=== PATIENT | female | born 1970 | race Two or more races ===

== ENCOUNTER → 2020-04-22 15:54 | Outpatient (BNVA) | payer OTHER, SELFPAY | PROVIDERS: PCP Pediatrics; Referring Provider Pediatrics; Visit Provider Urology | DX: Z76.89 Persons encountering health services in other specified circumstances (principal) ==

== ENCOUNTER 2020-06-17 08:26 | Outpatient (REF) | payer OTHER, SELFPAY ==
--- NOTE | 2020-06-17 | CT_ITS ---
EXAMINATION: CT SOFT TISSUE NECK WITH CONTRAST CLINICAL INFORMATION: Right neck mass, dysphagia. COMPARISON: None TECHNIQUE: Following the intravenous administration of 60 mL of Omnipaque 350 intravenous contrast, helical imaging was performed in the axial plane with generation of coronal and sagittal reformatted images. This CT examination was performed using dose optimization techniques as appropriate, variously including the following: *Automated exposure control *Adjustment of mA and/or kV according to patient size (this includes techniques or standardized protocols for targeted exams where dose is matched to indication/reason for exam; i.e. extremities or head) *Use of iterative reconstruction technique DLP: 312 mGy-cm FINDINGS: There are mild shotty bilateral lymph nodes the largest lymph node level IV below the mandible angle measures 0.7 cm in short axis. A similar lymph node is seen in the left neck as well. Smaller shotty lymph nodes are seen in the submandibular space. The parotid glands are homogeneous in attenuation. The submandibular glands are normal. The oral cavity is limited in evaluation secondary to dental amalgam artifact. The laryngeal structures are normal. The parapharyngeal fat is preserved. The carotid sheath vasculature opacify normally. No extramucosal soft tissue mass or fluid collection is seen. No retropharyngeal fluid collection is seen. There is a hypodensity in the right thyroid lobe likely a nodule. The left gland is normal. The superior mediastinum is unremarkable. The lung apices are clear. The mastoid air cells are well aerated. There is a small polyp or retention cyst right maxillary sinus. The rest of the paranasal sinuses and mastoid air cells are well aerated. The temporomandibular joints are normal. No periapical disease is identified. No osseous abnormalities are seen. The imaged portions of the brain parenchyma are unremarkable. There are degenerative disc changes C4-C5 disc level with mild ventral spondylosis. CT/CT soft tissue neck w con IMPRESSION: No soft tissue mass seen in the neck. Benign-appearing lymph nodes seen in the neck. The oral cavity is limited in evaluation secondary to dental amalgam-related artifacts.
== END 2020-06-17 08:27 | disposition home or self-care (01) ==
LOC: HO.CT 08:26
PROVIDERS: PCP Pediatrics; Visit Provider Otolaryngology
DX: R22.1 Localized swelling, mass and lump, neck (principal)
CPT/HCPCS: 70491

== ENCOUNTER → 2021-03-15 15:37 | Outpatient (BNVA) | payer OTHER, SELFPAY | DX: Z13.9 Encounter for screening, unspecified (principal); N20.0 Calculus of kidney | CPT/HCPCS: 99212 ==

== ENCOUNTER → 2021-08-04 09:47 | Outpatient (BNVA) | payer OTHER, SELFPAY | PROVIDERS: PCP Pediatrics ==

== ENCOUNTER 2022-02-13 16:34 | Outpatient (REF) | payer OTHER, SELFPAY ==
--- NOTE | ~2022-02-13 | US_ITS ---
EXAMINATION: US RETROPERITONEAL LIMITED (RENAL ONLY) CLINICAL INFORMATION: Cyst of kidney, acquired. COMPARISON: Renal ultrasound 05/18/2021 and 04/15/2020. TECHNIQUE: Real-time imaging of the kidneys. FINDINGS: RIGHT KIDNEY: 10.4 x 4.8 x 5.1 cm (SAG x AP x TRV). The kidney is normal in size, contour, and echogenicity. There is mild cortical thinning or scarring in the midpole that appears unchanged. Renal cortical thickness is otherwise normal. No calculi or focal parenchymal lesions. No hydronephrosis. LEFT KIDNEY: 11.2 x 5.7 x 4.1 cm (SAG x AP x TRV). The kidney is normal in size, contour, and echogenicity. Renal cortical thickness is normal. There is 1.7 x 1.5 x 1.6 cm cyst in the upper pole. This measured 1.6 x 1.5 x 1.3 cm on most recent exam May 2021 and is minimally increased in size. No renal calculi or hydronephrosis. US/US renal BI IMPRESSION: Small simple left renal cyst.
== END 2022-02-13 16:35 | disposition home or self-care (01) ==
LOC: HO.US 16:34
DX: N28.1 Cyst of kidney, acquired (principal); N20.0 Calculus of kidney
CPT/HCPCS: 76775

== ENCOUNTER 2023-02-01 13:09 | Outpatient (REF) | payer OTHER, SELFPAY ==
--- NOTE | ~2023-02-01 | US_ITS ---
EXAMINATION: US RETROPERITONEAL LIMITED (RENAL ONLY) CLINICAL INFORMATION: Cyst of kidney, acquired. COMPARISON: Renal ultrasound 02/13/2022 and 05/18/2021. TECHNIQUE: Real-time imaging of the kidneys. FINDINGS: RIGHT KIDNEY: 10.9 x 5.0 x 5.6 cm (SAG x AP x TRV). The kidney is normal in size, contour, and echogenicity. Renal cortical thickness is normal. No calculi or focal parenchymal lesions. No hydronephrosis. LEFT KIDNEY: 11.5 x 4.6 x 5.7 cm (SAG x AP x TRV). The kidney is normal in size, contour, and echogenicity. Renal cortical thickness is normal. No renal calculi or hydronephrosis. At the upper pole, a 1.8 cm benign, simple cyst is seen, for which no imaging follow-up is recommended. US/US renal BI IMPRESSION: Unremarkable examination.
== END 2023-02-01 13:10 | disposition home or self-care (01) ==
LOC: HO.US 13:09
PROVIDERS: Visit Provider Nurse Practitioner Family
DX: N20.0 Calculus of kidney (principal); N28.1 Cyst of kidney, acquired
CPT/HCPCS: 76775

== ENCOUNTER 2023-02-15 13:30 | Outpatient (AMB) | payer OTHER, SELFPAY ==
--- NOTE | 2023-02-15 13:32 | A.OFFVIS_ITS ---
Intake Intake Visit Reasons: 1 year nephrolithiasis follow up w/renal US (set) Intake Note: Patient is present for follow up nephrolithiasis Urology Medications: none Blood Thinner: None Mask Inspector Required: No Accompanied by: Self / Same As Patient Allergies metronidazole Allergy (Unknown, Verified 02/15/23 14:03) rash Medication List - Last Reconciled 02/15/23 by PAM Pandey pantoprazole 40 mg PO BID venlafaxine ER 75 mg PO DAILY HPI HPI Comments History of Present Illness Details Jena is a very pleasant 52-year-old [employer] female patient of Dr. Melendez. She presents to the office today for follow-up of her nephrolithiasis and renal cyst. In discussion with the patient today she reports to be doing and feeling well. Recent renal imaging results reviewed with the patient today. Bilateral kidneys with no calculi, lesions, and or hydronephrosis noted. At the upper pole a 1.8 cm benign left simple cyst is seen. For which no imaging follow-up is recommended per radiology report. When asked patient reports to be drinking plenty of water daily. She denies any urinary issues or concerns at this time. When asked she reports to be happy with current voiding parameters. She denies urinary urgency, urinary frequency, incontinence, nocturia, hematuria, dysuria, foul smelling urine, changes to urinary stream, flank pain, fever, and or chills. In office urinalysis results reviewed with the patient today. Discussed at length potential causes for microscopic hematuria. Patient denies any previous chemical exposure or smoking history. Discussed further microscopic hematuria workup versus surveillance monitoring. Patient Patient otherwise offers no other issues or concerns at this time. [facility] Medical History Renal cyst Review of Systems Const All systems reviewed & are unremarkable except as noted in HPI and below Eyes Reports no additional complaints ENT Reports no additional complaints Card Reports no additional complaints Resp Reports no additional complaints GI Reports no additional complaints Reports as per HPI Musc Reports no additional complaints Neuro Reports no additional complaints Psych Reports no additional complaints Endo Reports no additional complaints Jackson/Lymph Reports no additional complaints Aller/Immun Reports no additional complaints Physical Exam Const General: cooperative, healthy appearing, comfortable, no acute distress, well developed, alert and awake Orientation/consciousness: patient oriented x3 Limitations: no limitations HEENT Head: Yes normal to inspection, Yes normocephalic and Yes atraumatic Ears: hearing grossly normal bilaterally Eyes General: appearance normal, both eyes and all related structures Neck Neck: Yes normal visual inspection and Yes trachea midline Chest Chest palpation & inspection: normal inspection of the chest Resp Effort & Inspection: normal respiratory effort and able to speak in complete sentences Cardio Rate: regular rate GI Inspection: Yes normal to inspection General: Yes no CVA tenderness Back/Spine/Pelvis Back: no CVA tenderness Skin General skin exam: no rashes or lesions noted Neuro General: patient oriented x3 Extrem General: Yes normal to inspection Psych Appearance: grossly normal and well kempt Mental Status: mental status grossly normal Speech and movement: Normal speech and movement present and Clear speech present Affect: normal affect Attitude: cooperative Thought process: Normal thought process present Thought content: Normal thought content present Insight: Good insight present (Psych) Judgement: Good judgement present (Psych) Results AMB Urinalysis, Automated UA Leukoctes 0 Akiko/uL Last Edit by [employer] [facility] [facility] on 02/15/23 13:52 UA Nitrite Last Edit by [employer] on 02/15/23 13:52 UA Urobilinogen 0.2 mg/dL Last Edit by [employer] on 02/15/23 13:52 UA Protein 0 mg/dL Last Edit by [employer] on 02/15/23 13:52 UA pH 5.5 Last Edit by [employer] [facility] on 02/15/23 13:52 UA Blood 200 Josh/uL Last Edit by [employer] on 02/15/23 13:52 UA Specific [place] 1.025 Last Edit by [employer] on 02/15/23 13:52 UA Ketone Negative Last Edit by [employer] on 02/15/23 13:52 UA Bilirubin 1 mg/dL Last Edit by [employer] on 02/15/23 13:52 UA Glucose 0 mg/dL Last Edit by [employer] on 02/15/23 13:52 Results Reviewed Results Reviewed: Laboratory Last Values Urine pH (Auto) 5.5 02/15/23 13:41 Specific [place] (Auto) 1.025 02/15/23 13:41 Urine Protein (Auto) 0 mg/dL 02/15/23 13:41 Glucose (UA)(Auto) 0 mg/dL 02/15/23 13:41 Urine Ketones (Auto) Negative 02/15/23 13:41 Urine Blood (Auto) 200 Josh/uL 02/15/23 13:41 Urine Bilirubin (Auto) 1 mg/dL 02/15/23 13:41 Urine Urobilinogen (Auto) 0.2 mg/dL 02/15/23 13:41 Leukocyte Esterase (Auto) 0 Akiko/uL 02/15/23 13:41 Date of Service: 02/01/23 EXAMINATION: US RETROPERITONEAL LIMITED (RENAL ONLY) CLINICAL INFORMATION: Cyst of kidney, acquired. COMPARISON: Renal ultrasound 02/13/2022 and 05/18/2021. TECHNIQUE: Real-time imaging of the kidneys. FINDINGS: RIGHT KIDNEY: 10.9 x 5.0 x 5.6 cm (SAG x AP x TRV). The kidney is normal in size, contour, and echogenicity. Renal cortical thickness is normal. No calculi or focal parenchymal lesions. No hydronephrosis. LEFT KIDNEY: 11.5 x 4.6 x 5.7 cm (SAG x AP x TRV). The kidney is normal in size, contour, and echogenicity. Renal cortical thickness is normal. No renal calculi or hydronephrosis. At the upper pole, a 1.8 cm benign, simple cyst is seen, for which no imaging follow-up is recommended. IMPRESSION: Unremarkable examination. Assessment & Plan Assessment & Plan (1) Renal cyst: Code(s): N28.1 - Cyst of kidney, acquired (2) Nephrolithiasis: Code(s): N20.0 - Calculus of kidney (3) Microscopic hematuria: Code(s): R31.29 - Other microscopic hematuria Plan In office urinalysis results reviewed with the patient today; as noted above; will send for urine cytology Recent renal imaging results reviewed with the patient today; as noted above. Educated, encouraged, and stressed the importance of drinking plenty of water daily. Discussed adding 1 oz of lemon juice to water daily. Patient denies any urological issues or concerns at this time. Discussed further microscopic hematuria workup to include cytology and in office cystoscopy with imaging. Will continue with surveillance monitoring Renal ultrasound in 1 year. Follow-up in 1 year with imaging to be completed prior; or sooner with any issues, concerns, and or questions. Orders: Orders AMB Urinalysis Automated Today Z13.9 - Encounter for screening, unspecified Urine Cytology Today R31.29 - Other microscopic hematuria Patient Instructions: The patient had an opportunity to ask questions regarding the treatment plan. All questions were answered. Physical exam, labs, and imaging were discussed and reviewed in detail. As well as risks, benefits, and discussion of treatment choices. No major barriers to understanding were identified. The patient expressed understanding and agreement with the above treatment plan. The patient was made aware they should contact our office by phone for worsening of their current condition, the appearance of new symptoms, or with any qu estions or concerns. Compliance is encouraged with any medications and follow up testing that is ordered. It is a privilege to be allowed the opportunity to participate in? your urological care.? Again, if you have any questions or concerns If you have any questions or concerns please do not hesitate to contact me. The office is [phone]. This note is constructed using voice recognition software. While every effort has been made to ensure accuracy desk reporter errors may have been included. Yours sincerely, PAM Pandey Coding Level of Care Code Est Pt Level 3 (40093) Diagnoses Renal cyst N28.1 Nephrolithiasis N20.0 Microscopic hematuria R31.29
== END 2023-02-15 14:06 | disposition home or self-care (01) ==
PROVIDERS: PCP Pediatrics; Visit Provider Nurse Practitioner Family
DX: N28.1 Cyst of kidney, acquired (principal); N20.0 Calculus of kidney; R31.29 Other microscopic hematuria; Z13.9 Encounter for screening, unspecified
CPT/HCPCS: 99213

== ENCOUNTER 2023-02-15 13:30 | Outpatient (REF) | payer OTHER, SELFPAY ==
[2023-02-15 16:18] LABS: Urine Cytology See Pathology rpt
== END 2023-02-15 13:31 | disposition home or self-care (01) ==
LOC: HO.LNP 13:30
PROVIDERS: Visit Provider Nurse Practitioner Family
DX: R31.29 Other microscopic hematuria (principal); N28.1 Cyst of kidney, acquired; Z79.899 Other long term (current) drug therapy
CPT/HCPCS: 81003; 88112

== ENCOUNTER 2024-02-21 12:44 | Outpatient (REF) | payer OTHER, SELFPAY ==
--- NOTE | ~2024-02-21 | US_ITS ---
EXAMINATION: US RETROPERITONEAL LIMITED (RENAL ONLY) CLINICAL INFORMATION: Cyst of kidney, acquired. COMPARISON: Renal ultrasound 02/01/2023 and 02/13/2022. TECHNIQUE: Real-time imaging of the kidneys. FINDINGS: RIGHT KIDNEY: 11.1 x 4.5 x 4.7 cm (SAG x AP x TRV). Minimal right renal parenchymal cortical scarring. Renal cortical thickness is otherwise normal. No calculi or focal parenchymal lesions. No hydronephrosis. LEFT KIDNEY: 11.6 x 5.4 x 4.0 cm (SAG x AP x TRV). The kidney is normal in size, contour, and echogenicity. Renal cortical thickness is normal. No renal calculi or hydronephrosis. Benign-appearing renal cyst measuring 1.8 cm. No follow up imaging is recommended. Partially imaged liver appears echogenic suggestive of hepatic steatosis or underlying liver disease. This could be further characterized with a dedicated right upper quadrant ultrasound if clinically indicated. US/US renal BI IMPRESSION: * Benign-appearing 1.8 cm left renal cyst. No follow up imaging is recommended. * Partially imaged liver appears echogenic suggestive of hepatic steatosis or underlying liver disease. This could be further characterized with a dedicated right upper quadrant ultrasound if clinically indicated. Electronically signed by: Wen Mcdonald MD 03/02/2024 07:28 PM EDT
== END 2024-02-21 12:45 | disposition home or self-care (01) ==
LOC: HO.US 12:44
PROVIDERS: PCP Pediatrics; Visit Provider Nurse Practitioner Family
DX: N20.0 Calculus of kidney (principal); N28.1 Cyst of kidney, acquired
CPT/HCPCS: 76775

== ENCOUNTER 2024-03-04 07:57 | Outpatient (REF) | payer OTHER, SELFPAY ==
[2024-03-04 17:52] LABS: Urine Cytology See Pathology rpt
== END 2024-03-04 07:58 | disposition home or self-care (01) ==
LOC: HO.LNP 07:57
PROVIDERS: PCP Pediatrics; Visit Provider Nurse Practitioner Family
DX: R31.29 Other microscopic hematuria (principal)
CPT/HCPCS: 81003; 88112

== ENCOUNTER 2024-03-04 07:57 | Outpatient (AMB) | payer OTHER, SELFPAY ==
--- NOTE | 2024-03-04 07:58 | A.OFFVIS_ITS ---
Intake Visit Reasons: 1y/US(set) Intake Note: Patient presents today for follow up on: Nephrolithiasis and Ultrasound Results Imaging Completed: 02/21/24 Urology Medications: none Blood Thinner: None Optimization Consultant Required: No Accompanied by: Self / Same As Patient Allergies metronidazole Allergy (Unknown, Verified 03/04/24 08:16) rash Medication List - Last Reconciled 03/04/24 by PAM Pandey pantoprazole 40 mg PO BID venlafaxine ER 150 mg PO DAILY HPI Comments Details: Jena is a very pleasant 53-year-old female patient of Dr. Melendez. She presents to the office today for follow-up of her nephrolithiasis and renal cyst. In discussion with the patient today she reports to be doing and feeling well. Recent renal imaging results reviewed with the patient today. Bilateral kidneys with no calculi, lesions, and or hydronephrosis noted. At the upper pole a 1.8 cm benign left simple cyst is seen. For which no imaging follow-up is recommended per radiology report. When asked patient reports to be drinking plenty of water daily. She denies any urinary issues or concerns at this time. When asked she reports to be happy with current voiding parameters. She denies urinary urgency, urinary frequency, incontinence, nocturia, hematuria, dysuria, foul smelling urine, changes to urinary stream, flank pain, fever, and or chills. In office urinalysis results reviewed with the patient today. Discussed at length potential causes for microscopic hematuria. Patient denies any previous chemical exposure or smoking history. Discussed further microscopic hematuria workup versus surveillance monitoring. She discusses recently meeting with mushroom packer as she is trying to eat healthier and lose weight naturally. Patient otherwise offers no other issues or concerns at this time. 03/02 urine cytology: Negative for high-grade urothelial carcinoma [facility] Medical History Renal cyst Review of Systems Const All systems reviewed & are unremarkable except as noted in HPI and below Eyes Reports no additional complaints ENT Reports no additional complaints Card Reports no additional complaints Resp Reports no additional complaints GI Reports no additional complaints Reports as per HPI Musc Reports no additional complaints Neuro Reports no additional complaints Psych Reports no additional complaints Endo Reports no additional complaints Jackson/Lymph Reports no additional complaints Aller/Immun Reports no additional complaints Physical Exam Const General: cooperative, healthy appearing, comfortable, no acute distress, well developed, alert and awake Orientation/consciousness: patient oriented x3 Limitations: no limitations HEENT Head: Yes normal to inspection, Yes normocephalic and Yes atraumatic Ears: hearing grossly normal bilaterally Eyes General: appearance normal, both eyes and all related structures Neck Neck: Yes normal visual inspection and Yes trachea midline Chest Chest palpation & inspection: normal inspection of the chest Resp Effort & Inspection: normal respiratory effort and able to speak in complete sentences Cardio Rate: regular rate GI Inspection: Yes normal to inspection General: Yes no CVA tenderness Back/Spine/Pelvis Back: no CVA tenderness Skin General skin exam: no rashes or lesions noted Neuro General: patient oriented x3 Extrem General: Yes normal to inspection Psych Appearance: grossly normal and well kempt Mental Status: mental status grossly normal Speech and movement: Normal speech and movement present and Clear speech present Affect: normal affect Attitude: cooperative Thought process: Normal thought process present Thought content: Normal thought content present Insight: Fair insight present (Psych) Judgement: Fair judgement present (Psych) Results AMB Urinalysis, Automated UA Leukoctes 0 Akiko/uL Last Edit by [employer] on 03/04/24 08:07 UA Nitrite Last Edit by Scot Lugo on 03/04/24 08:07 UA Urobilinogen 0.2 mg/dL Last Edit by [employer] on 03/04/24 08:07 UA Protein 0 mg/dL Last Edit by [employer] on 03/04/24 08:07 UA pH 6.0 Last Edit by [employer] on 03/04/24 08:07 UA Blood 25 Josh/uL Last Edit by [employer] on 03/04/24 08:07 UA Specific [place] 1.020 Last Edit by [employer] on 03/04/24 08:07 UA Ketone Negative Last Edit by Scot Lugo on 03/04/24 08:07 UA Bilirubin 0 mg/dL Last Edit by Scot Lugo on 03/04/24 08:07 UA Glucose 0 mg/dL Last Edit by Scot Lugo on 03/04/24 08:07 Results Reviewed Results Reviewed: Date of Service: 02/21/24 Procedure(s): US renal BI FINDINGS: RIGHT KIDNEY: 11.1 x 4.5 x 4.7 cm (SAG x AP x TRV). Minimal right renal parenchymal cortical scarring. Renal cortical thickness is otherwise normal. No calculi or focal parenchymal lesions. No hydronephrosis. LEFT KIDNEY: 11.6 x 5.4 x 4.0 cm (SAG x AP x TRV). The kidney is normal in size, contour, and echogenicity. Renal cortical thickness is normal. No renal calculi or hydronephrosis. Benign-appearing renal cyst measuring 1.8 cm. No follow up imaging is recommended. Partially imaged liver appears echogenic suggestive of hepatic steatosis or underlying liver disease. This could be further characterized with a dedicated right upper quadrant ultrasound if clinically indicated. IMPRESSION: * Benign-appearing 1.8 cm left renal cyst. No follow up imaging is recommended. * Partially imaged liver appears echogenic suggestive of hepatic steatosis or underlying liver disease. This could be further characterized with a dedicated right upper quadrant ultrasound if clinically indicated. Assessment & Plan Assessment & Plan (1) Microscopic hematuria: Code(s): R31.29 - Other microscopic hematuria Category: Medical (2) Renal cyst: Code(s): N28.1 - Cyst of kidney, acquired Category: Medical (3) Nephrolithiasis: Code(s): N20.0 - Calculus of kidney Category: Medical Plan In office urinalysis results reviewed with the patient today; as noted above; will send for urine cytology Recent renal imaging results reviewed with the patient today; as noted above. Previous urine cytology results reviewed with the patient today; as noted above. Educated, encouraged, and stressed the importance of drinking plenty of water daily. Discussed adding 1 oz of lemon juice to water daily. Patient denies any urological issues or concerns at this time. Discussed further microscopic hematuria workup to include cytology and in office cystoscopy with imaging. Will continue with surveillance monitoring. Renal ultrasound in 1 year. Follow-up in 1 year with imaging to be completed prior; or sooner with any issues, concerns, and or questions. Orders: Orders AMB Urinalysis Automated Today Z13.9 - Encounter for screening, unspecified US renal BI 1 Year N20.0 - Calculus of kidney, N28.1 - Cyst of kidney, acquired, R31.29 - Other microscopic hematuria Patient Instructions: The patient had an opportunity to ask questions regarding the treatment plan. All questions were answered. Physical exam, labs, and imaging were discussed and reviewed in detail. As well as risks, benefits, and discussion of treatment choices. No major barriers to understanding were identified. The patient expressed understanding and agreement with the above treatment plan. The patient was made aware they should contact our office by phone for worsening of their current condition, the appearance of new symptoms, or with any questions or concerns. Compliance is encouraged with any medications and follow up testing that is ordered. It is a privilege to be allowed the opportunity to participate in? your urological care.? Again, if you have any questions or concerns If you have any questions or concerns please do not hesitate to contact me. The office is [phone]. This note is constructed using voice recognition software. While every effort has been made to ensure accuracy cloth coverer errors may have been included. Yours sincerely, PAM Pandey Coding Level of Care Code Est Pt Level 3 (29650) Diagnoses Microscopic hematuria R31.29 Renal cyst N28.1 Nephrolithiasis N20.0
== END 2024-03-04 08:18 | disposition home or self-care (01) ==
LOC: HO.HUSH 07:57
PROVIDERS: PCP Pediatrics; Visit Provider Nurse Practitioner Family
DX: R31.29 Other microscopic hematuria (principal); N28.1 Cyst of kidney, acquired; N20.0 Calculus of kidney; Z13.9 Encounter for screening, unspecified
CPT/HCPCS: 99213

== ENCOUNTER 2025-02-26 12:48 | Outpatient (REF) | payer OTHER, SELFPAY ==
--- NOTE | ~2025-02-26 | US_ITS ---
EXAMINATION: US KIDNEY BILATERAL HISTORY: N20.0 - Calculus of kidney TECHNIQUE: Real-time grayscale ultrasound imaging of the kidneys was performed and images were reviewed. COMPARISON: Comparison is made with the prior examination dated 02/21/2024. FINDINGS: Right kidney: The right kidney measures 10.9 x 4.9 x 4.6 cm. Renal parenchymal echotexture and thickness are normal. There is a cortical defect at the lower pole which may represent a scar. There are no masses. There is no hydronephrosis or renal calculi. Left Kidney: The left kidney measures 11.3 x 5.5 x 5.1 cm. Renal parenchymal echotexture and thickness are normal. There are no masses. There is no hydronephrosis or renal calculi. US/US renal BI IMPRESSION: No evidence of nephrolithiasis. Electronically signed by: Timothy Virk MD 02/26/2025 02:05 PM EDT
--- OUTSIDE RECORDS SUMMARY | 2025-02-26 12:50 | XMS_ITS | Encounter Summary ---
Author Organization [facility] Address [address] [place] [address] Phone Care Team Providers Care Materials Handling Coordinator Name Role Phone Killian Melendez MD Primary Care Provider Encounter Details Date Type Department Care Team (Late st Contact Info) Description 06/19/2023 Procedure Pass [facility] Endoscopy Department [address] [place] [address] Social History Tobacco Use Types Packs/Day Years Used Date Smoking Tobacco: Former Smokeless Tobacco: Former Alcohol Use Standard Drinks/Week Comments Yes 0 (1 standard drink = 0.6 oz pur e alcohol) Education Answer Date Recorded Are you interested in more education? Not on hayley e 10/05/2022 Are you concerned about learning? Not on file 10/05/2022 No 10/05/2022 No 10/05/2022 Digital Access Answer Date Recorded No 11/03/2022 No 11/03/2022 Reliable internet access at home? Not on file 11/03/2022 Device with a working camera? Not on file Comments Unknown Sex and Gender Information Value Date Recorded Sex Assigned at Female 04/12/2022 2:52 PM EDT Legal Sex Female 2:57 PM EDT Gender Identity Female 04/12/2022 2:52 PM EDT Sexual Orientation Straight 04/12/2022 2: 52 PM EDT documented as of this encounter Plan of Treatment Upcoming Encounters Date Type Department Care Team (Late st Contact Info) Description 06/14/2025 3:40 PM EST Office Visit [facility] Endocrinology [address] [place] [address] Rosaura Raymond MD [address] [place] [phone] [email or web address] documented as of this encounter Visit Diagnoses Not on filedocumented in this encounter Care Teams Materials Handling Coordinator Relationship Specialty Start Date End Date Killian Melendez MD [address] [place] [phone] PCP - General Internal Medicine 08/29/18 documented as of this encounter Additional Source Comments The information contained in this document represents components of the legal health record. It is not the complete legal health record.[facility]
--- OUTSIDE RECORDS SUMMARY | 2025-02-26 12:50 | XMS_ITS ---
Author Name [facility] Organization Unknown History of Medication Use Medication Directions Dispensed Refills Start Date End Date Stat us lidocaine (PF) 100 mg/5 mL (2 %) injection syringe Take 8 mL by injection route. 11/05/2024 active Marcaine (PF) 0.5 % (5 mg/mL) injection solution Take 8 mL by injection route. 11/05/2024 active triamcinolone acetonide 40 mg/mL suspension for injection Take 80 mg by injection route. 11/05/2024 active meloxicam 15 mg tablet Take 1 tablet every day by oral route as needed. 09/03/2024 active Marcaine (PF) 0.5 % (5 mg/mL) injection solution active lidocaine (PF) 100 mg/5 mL (2 %) injection syringe active triamcinolone acetonide 40 mg/mL suspension for injection active nitrofurantoin monohydrate/macrocrys tals 100 mg capsule TAKE 1 CAPSULE BY MOUTH TWICE A DAY FOR 5 DAYS active nystatin 100,000 unit/gram topical powder APPLY TO AFFECTED AREA TWICE A DAY active oxycodone 5 mg/5 mL oral solution TAKE 4 ML EVERY 6 HOURS BY ORAL ROUTE FOR 5 DAYS. active venlafaxine ER 37.5 mg capsule,extended release 24 hr TAKE 1 CAPSULE EVERY DAY BY ORAL ROUTE DIRECTED, FOR DEPRESSION/ANXIETY. active Allergies Allergen Reaction Severity Comment Documented Date Source Statu s DICYCLOMINE ENS_AONECT OMEPRAZOLE ENS_AONECT ONDANSETRON ENS_AONECT Problems Problem Status Onset Date Problem Type Date of Resoluti on Source Primary gonarthrosis, bilateral active 2024-09-03 ProblemAct ENS_AONECT Encounters Encounter Type Encounter Reason Primary Diagnosis Location Date Ambulatory [facility] 02/05/2025 Ambulatory [facility] 02/04/2025 Ambulatory [facility] 02/04/2025 Ambulatory [facility] 12[facility]28/2024 Ambulatory [facility] 12/02/2024 Ambulatory [facility] 11/17/2024 Ambulatory [facility] 11/05/2024 Ambulatory [facility] 11/04/2024 Ambulatory [facility] 11/03/2024 Ambulatory [facility] 10/21/2024 Ambulatory [facility] 10/19/2024 Ambulatory [facility] 09/04/2024 Ambulatory [facility] 09/03/2024 Ambulatory [facility] 09/03/2024 Ambulatory [facility] 09/03/2024 Ambulatory [facility] 09/03/2024 Ambulatory [facility] 08/27/2024 Ambulatory [facility] 05/26/2024 Ambulatory [facility] 05/26/2024 Ambulatory [facility] 05/26/2024 [facility]ulatory [facility] 05/26/2024
--- OUTSIDE RECORDS SUMMARY | 2025-02-26 12:50 | XMS_ITS | Clinical Summary ---
Author Organization [facility] Address [address] [place] [phone] Care Team Providers Care Parimutuel Clerk Name Role Phone Killian Melendez MD Primary Care Provider [phone] Allergies Active Allergy Reactions Criticality Noted Date Comments Dicyclomine Palpitations,Unknown Medium 11/27/2013 Metronidazole 10/20/2018 Omeprazole Unknown,Pain High 01/09/2018 Other Reaction(s): Angina Ondansetron Itching,Unknown Low 04/08/2023 Medications meloxicam (MOBIC) 15 mg tablet Take 1 tablet (15 mg total) by mouth. 09/03/2024 Active gabapentin (NEURONTIN) 100 mg capsule 1 capsule (100 mg total) 3 (three) times a day. Active pantoprazole (PROTONIX) 40 mg EC tablet Take 1 tablet (40 mg total) by mouth 1 (one) time each day. 07/05/2022 Active omega 1-bhf-zdo-fish oil (Fish OiL) 1,000 (120-180) mg capsule 1200 mg 1 po qd Active Active Problems Problem Noted Date Diagnosed Date Carpal tunnel syndrome on left 10/13/2024 Pain in both hands 05/22/2024 Impaired fasting glucose 04/28/2023 Tinnitus 04/09/2023 Mixed hyperlipidemia 01/31/2022 Stage 2 chronic kidney disease 01/31/2022 Benign cyst of kidney 08/05/2021 Overview (10/13/2024): 1.8cm left-benign Hiatal hernia 10/12/2020 Major depressive disorder 03/06/2019 Degeneration of lumbar intervertebral disc 12/17 Loss of hair 10/20/2018 Vertigo 10/20/2018 Kidney stone 03/16/2018 Gastroesophageal reflux disease without esophagi tis 08/20/2017 Urinary tract infectious disease 12/02/2013 Overview (10/13/2024): RECORDED 12/02/2013 11:34AM BY ELIA DE LA PAZ, NURSE TRIAGE Low back pain 11/27/2013 Migraine 11/27/2013 Non-toxic uninodular goiter 09/01/2013 Thyroid nodule 09/01/2013 Sleep apnea 10/06/2012 Surgical History Surgery Date Site/Laterality Comments OTHER SURGICAL HISTORY PROCEDURE: DENIES PREVIOUS SURGERY Medical History Medical History Date Comments Chronic low back pain DX:Chronic low back pain Knee pain DX:Knee pain Family History Relation Name Status Comments Mother Alive Social History Tobacco Use Types Packs/Day Years Used Date Smoking Tobacco: Never Alcohol Use Standard Drinks/Week Comments Yes 0 (1 standard drink = 0.6 oz pur e alcohol) Comments Unknown Sex and Gender Information Value Date Recorded Sex Assigned at Not on file Legal Sex Female 11:54 PM EST Gender Identity Not on file Sexual Orientation Not on file Obstetrics History Last Filed Vital Signs Vital Sign Reading Time Taken Comments Blood Pressure 125/87 03/02/2022 8:31 AM EDT Pulse 82 03/02/2022 8:31 AM EDT Temperature - - Respiratory Rate - - Oxygen Saturation - - Inhaled Oxygen Concentration - - Weight 98.9 kg (218 lb) 10/13/2024 2:54 PM EDT Height 160 cm (5' 3 ) 10/13/2024 2:54 PM EDT Body Mass Index 38.62 10/13/2024 2:54 PM EDT Plan of Treatment Health Maintenance Due Date Last Done Comments Hepatitis A Vaccines (1 of 2 - Risk 2-dose series) 1989 Cervical Cancer Screening: Pap Smear 1991 Hepatitis B Vaccines (3 of 3 - 19+ 3-dose series) 11/15/2006 08/08/2006, 05/17/2006 Pneumococcal Vaccine: 50+ Years (1 of 1 - PCV) 2020 Breast Cancer Screening 03/28/2022 03/28/2020 Cholesterol Screening (Lipid Panel) 05/15/2022 Colorectal Cancer Screening: Colonoscopy 05/15/2022 HIV Screening 05/15/2022 Hepatitis C Screening 05/15/2022 Social Influencers of Health Screening 05/15/2022 Depression Screening 06/10/2024 COVID-19 Vaccine ( season) 2025 07/27/2021, 10/07/2020, 09/09/2020 Influenza Vaccine (#1) 2025 , 07/17/2022, 07/13/2021, Additional history exists DTaP,Tdap,and Td Vaccines (3 - Td or Tdap) 07/17/2032 07/17/2022, 10/03/2012 Zoster Vaccines Completed 11/05/2023, 09/04/2023 HIB Vaccines Aged Out No longer eligi ble based on patient's age to complete this topic HPV Vaccines Aged Out No longer eligi ble based on patient's age to complete this topic IPV Vaccines Aged Out No longer eligi ble based on patient's age to complete this topic MMR Vaccines Aged Out No longer eligi ble based on patient's age to complete this topic Meningococcal ACWY Vaccine Aged Out N o longer eligible based on patient's age to complete this topic Meningococcal B Vaccine Aged Out No l onger eligible based on patient's age to complete this topic RSV Immunization Patients Under 20 months Aged Out No longer eligible based on patient's age to complete this topic Varicella Vaccines Aged Out No longer eligible based on patient's age to complete this topic Insurance [employer] Care Teams Parimutuel Clerk Relationship Specialty Start Date End Date Killian Melendez MD [address] PCP - General Internal Medicine 01/23/22
--- OUTSIDE RECORDS SUMMARY | 2025-02-26 12:50 | XMS_ITS | Clinical Summary ---
Author Organization [facility] Address [address] [place] [address] Care Team Providers Care Yard Specialist Name Role Phone Unavailable Primary Care Provider Unavailabl e Social History Tobacco Use Types Packs/Day Years Used Date Smoking Tobacco: Never Assessed Comments Unknown Sex and Gender Information Value Date Recorded Sex Assigned at Not on file Legal Sex Female 10:18 AM EDT Gender Identity Not on file Sexual Orientation Not on file Plan of Treatment Health Maintenance Due Date Last Done Comments Hepatitis C Virus Screening 1970 HIV Screening 1983 DTaP/Tdap/Td Vaccines (1 - Tdap) 1989 Hepatitis B Vaccines (1 of 3 - 19+ 3-dose series) 07/1989 Pneumococcal Vaccines 50+ (1 of 1 - PCV) 2020 Zoster (Shingles) Vaccine (1 of 2) 2020 COVID-19 Vaccine (1 - season) 2025
--- OUTSIDE RECORDS SUMMARY | 2025-02-26 12:50 | XMS_ITS | Encounter Summary ---
Author Organization [facility] Address [address] [place] [address] Phone Care Team Providers Care Compound Worker Name Role Phone Killian Melendez MD Primary Care Provider Encounter Details Date Type Department Care Team (Late st Contact Info) Description 02/13/[address] [facility] Endoscopy Department [address] [place] [address] Social History Tobacco Use Types Packs/Day Years [...] Description 06/14/2025 3:40 PM EST Office Visit [facility] Endocrinology [address] [place] [address] Rosaura Raymond MD [address] [place] [address] [email or web address] documented as of this encounter Visit Diagnoses Not on filedocumented in this encounter Care Teams Compound Worker Relationship Specialty Start Date End Date Killian Melendez MD [address] [place] [address] PCP - General Internal Medicine 08/29/18 documented as of this encounter Additional Source Comments The information contained in this document represents components of the legal health record. It is not the complete legal health record.[facility]
--- OUTSIDE RECORDS SUMMARY | 2025-02-26 12:51 | XMS_ITS | Clinical Summary ---
Author Organization [facility] Address [address] [place] [phone] Phone Care Team Providers Care Smoke Tester Name Role Phone Killian Melendez MD Primary Care Provider Allergies Active Allergy Reactions Criticality Noted Date Comments Dicyclomine 10/20/2018 Metronidazole Hcl 10/20/2018 Omeprazole Angina High 01/09/2018 Ondansetron Itching Low 04/08/2023 Medications pantoprazole (PROTONIX) 40 MG tablet Take 40 mg by mouth daily. 07/05/2022 Active venlafaxine (EFFEXOR-XR) 75 MG 24 hr capsule Take 75 mg by mouth daily. 06/27/2022 Active rhubarb root extract (ESTROVEN CMPLT MENOPAUSE RLF) 4 mg Tab Take by mouth. Active Active Problems Problem Noted Date Diagnosed Date Tinnitus 04/09/2023 04/09/2023 Stage 2 chronic kidney disease 01/31/2022 1 Mixed hyperlipidemia 01/31/2022 04/09/2023 Prediabetes 01/01/2022 04/09/2023 Steatosis of liver 05/21/2021 04/09/2023 Dysphonia 02/10/2019 Loss of hair 10/20/2018 Myofascial pain 10/20/2018 Shoulder pain 10/20/2018 Vertigo 10/20/2018 Vocal fold scar 10/20/2018 Vocal fold edema 10/20/2018 Kidney stone 03/16/2018 Gastroesophageal reflux disease without esophagi tis 08/20/2017 Sialoadenitis 08/20/2017 Patellofemoral stress syndrome 03/17/2017 M ni re's disease 02/12/2017 Sensorineural hearing loss 08/12/2015 Low back pain 11/27/2013 Migraine 11/27/2013 Panic disorder without agoraphobia 11/27/2013 Varicose veins of lower extremity 11/27/2013 Thyroid nodule 09/01/2013 Assessment & Plan (04/09/2023 12:12 PM EDT): 52 y.o woman w/ thyroid nodule. Has persistent right mid-upper neck discomfort, for which she sees ENT. Has been euthyroid. Would repeat TFTs w/ upcoming labs. Will call for records, including previous thyroid u/s to determine necessity of/timing of repeat thyroid ultrasound. Sleep apnea 10/06/2012 Encounters Date Type Department Care Team Description 01/05/2025 Orders Only [facility] Endocrinology [address] [place] [address] Rosaura Raymond MD Thyroid nodule (Primary Dx) 01/05/2025 Telephone [facility] Endocrinology [address] [place] [address] Rosaura Raymond MD Ultra Sound Order from Last 3 Months Immunizations Immunization Administration Dates Next Due COVID-19, Unspecified Formulation 07/27/2021,,09/09/2020 Hepatitis B Adult 08/08/2006,05/17/2006 INFLUENZA, SPLIT VIRUS, TRIV ALENT W/ PRESERVATIVE IM 04/17/2007,05/17/2006 Influenza Quadrivalent Prese rvative Free IM 03/05/2023,07/17/2022,07/13/2021,2019,03/06/2019 Influenza Quadrivalent w/ Preservative IM 03/23/2019,02/25/2018 Td (adult),2 Lf Tetanus Toxo id, PF, Adsorbed 07/17/2022 Tdap 10/03/2012 Family History Relation Status Comments Brother Alive Daughter Alive Father Grandchild Alive Maternal Grandfather Maternal Grandmother Mother Alive Paternal Grandfather Paternal Grandmother Sister Alive Son Alive Social History Tobacco Use Types Packs/Day Years Used Date Smoking Tobacco: Never Passive Smoke Exposure: Never Smokeless Tobacco: Never Alcohol Use Standard Drinks/Week Comments Not Currently 0 (1 standard drink = 0.6 oz pur e alcohol) rare Education Answer Date Recorded Are you interested [...] Orientation Straight 04/12/2022 2: 52 PM EDT Last Filed Vital Signs Vital Sign Reading Time Taken Comments Blood Pressure 124/84 09/05/2023 10:55 AM EDT Pulse 95 09/05/2023 10:55 AM EDT Temperature 36.3 C (97.4 F) 09/05/2023 10:55 AM EDT Respiratory Rate 18 09/05/2023 10:55 AM EDT Oxygen Saturation 99% 09/05/2023 10:55 AM EDT Inhaled Oxygen Concentration - - Weight 95.7 kg (211 lb) 09/05/2023 10:55 AM EDT Height 152.4 cm (5') 09/05/2023 10:55 AM EDT Body Mass Index 41.21 09/05/2023 10:55 AM EDT Plan of Treatment Upcoming Encounters Date Type Department Care Team (Late st Contact Info) Description 06/14/2025 3:40 PM EST Office Visit [facility] Endocrinology [address] [place] [phone] Rosaura Raymond MD [address] [place] [phone] Health Maintenance Due Date Last Done Comments LIPID PANEL 1970 DEPRESSION SCREENING 1982 HEPATITIS C SCREENING 1988 HIV ONE-TIME SCREENING (18-65 YEARS) 1988 PAP SMEAR 1991 SCREENING FOR DIABETES 2005 COLOGUARD 2015 COLONOSCOPY 2015 COLORECTAL CANCER SCREENING 2015 FIT TEST 2015 FOBT 2015 SIGMOIDOSCOPY 2015 VIRTUAL COLONOSCOPY 2015 PNEUMOCOCCAL VACCINES (50+ years) (1 of 1 - PCV) 2020 ZOSTER VACCINES (1 of 2) 2020 MAMMOGRAM 03/28/2022 03/28/2020 INFLUENZA VACCINE (#1) 2025 , 07/17/2022, 07/13/2021, Additional history exists COVID-19 VACCINE ( season) 2025 07/27/2021, 07/27/2021, 10/07/2020, Additional history exists Adult Td,Tdap Booster 07/17/2032 07/17/2022, 013 SMOKING STATUS SCREENING (Once After 26 Yrs) Completed 09/05/2023 HEPATITIS A VACCINES Aged Out No long er eligible based on patient's age to complete this topic HIB VACCINES Aged Out No longer eligi ble based on patient's age to complete this topic MENINGOCOCCAL VACCINES (ACWY) Aged Out No longer eligible based on patient's age to complete this topic MENINGOCOCCAL VACCINES (B) Aged Out N o longer eligible based on patient's age to complete this topic Medical Devices Not on file Procedures Procedure Name Priority Date/Time Associated Diagnosis Comments US THYROID GLAND Routine 01/05/2025 11:41 AM EDT Thyroid nodule from Last [address] [place] [address] [place] [address] HEALTH PLAN [employer] [facility] [employer] [address] [address] FAMILY HEALTH PLAN [facility] Address: [address] [place] [address] [place] [address] [place] [address] [place] [address] FAMILY HEALTH PLAN [facility]MINIST[facility] HEALTH PLAN [facility] [employer] [facility] [employer]AN [facility] Address: [address] [place] [phone] [employer] [facility] FAM[employer]AN [facility] [employer] Care Teams Smoke Tester Relationship Specialty Start Date End Date Killian Melendez MD [address] [place] [phone] PCP - General Internal Medicine 08/29/18 Additional Source Comments The information contained in this document represents components of the legal health record. It is not the complete legal health record.[facility]
--- OUTSIDE RECORDS SUMMARY | 2025-02-26 12:51 | XMS_ITS | Encounter Summary ---
Author Organization [facility] Address [address] [place] [address] Care Team Providers Care Boat Detailer Name Role Phone Unavailable Primary Care Provider Unavailabl e Encounter Details Date Type Department Care Team (Late st Contact Info) Description 07/23/2022 Erroneous Encounter [facility] DEPT [address] [place] [address] Provider, MD Marina Social History Tobacco Use Types Packs/Day Years Used Date Smoking Tobacco: Never Assessed Comments Unknown Sex and Gender Information Value Date Recorded Sex Assigned at Not on file Legal Sex Female 10:18 AM EDT Gender Identity Not on file Sexual Orientation Not on file documented as of this encounter Plan of Treatment Not on file documented as of this encounter Visit Diagnoses Not on filedocumented in this encounter
--- OUTSIDE RECORDS SUMMARY | 2025-02-26 12:51 | XMS_ITS | Clinical Summary ---
Author Organization [facility] Address [address] [place] [address] Care Team Providers Care Stamp Presser Name Role Phone Killian Melendez MD Primary Care Provider [phone] Allergies Active Allergy Reactions Criticality Noted Date Comments Dicyclomine Palpitations Medium 11/27/2013 Metronidazole 10/20/2018 Medications Medication Sig Dispensed Refills Start Date End Date Status lidocaine-priloca ine (EMLA) cream lidocaine-prilocaine 2.5 %-2.5 % topical cream APPLY TO AFFECTED AREA 4 TIMES A DAY FOR 10 DAYS 0 Active meloxicam (MOBIC) 15 MG tablet meloxicam 15 mg tablet TAKE 1 TABLET BY MOUTH EVERY DAY WITH FOOD FOR 90 DAYS 0 Active ondansetron (ZOFRAN) 8 MG tablet ondansetron HCl 8 mg tablet TAKE 1 TABLET BY MOUTH 3 TIMES A DAY NEEDED FOR NAUSEA 0 Active pantoprazole (PROTONIX) 40 MG tablet pantoprazole 40 mg tablet,delayed release 0 Active polyethylene glycol (MiraLax) 17 GM/SCOOP powder 17 g daily. 0 Active SUMAtriptan (IMITREX) 100 MG tablet sumatriptan 100 mg tablet TAKE ONE DOSE BY MOUTH JEF AT ONSET OF HEADACHE. MAY REPEAT X 1 AFTER 2 HOURS MAX OF 2 DOSES/ DAY 0 Active terconazole (TERAZOL 3) 0.8 % vaginal cream terconazole 0.8 % vaginal cream INSERT 1 APPLICATORFUL VAGINALLY AT BEDTIME FOR 3 DAYS 0 Active cyclobenzaprine (FLEXERIL) 5 MG tablet Take 5 mg by mouth daily as needed for muscle spasms. 0 Active venlafaxine (EFFEXOR-XR) 75 MG 24 hr capsule 0 02/27/2022 Active gabapentin (NEURONTIN) 300 MG capsuleIndication s:Chronic pain of both ankles,Pain in joints of both feet Take 1 capsule (300 mg total) by mouth daily. At bedtime 30 capsule 0 03/02/2022 Active Social History Tobacco Use Types Packs/Day Years Used Date Smoking Tobacco: Never Smokeless Tobacco: Never Alcohol Use Standard Drinks/Week Comments Yes 0 (1 standard drink = 0.6 oz pur e alcohol) Sex and Gender Information Value Date Recorded Sex Assigned at Not on file Gender Identity Not on file Sexual Orientation Not on file Job Start Date Occupation Industry Not on file Not on file Not on file Last Filed Vital Signs Vital Sign Reading Time Taken Comments Blood Pressure 125/87 03/02/2022 8:31 AM EDT Pulse 82 03/02/2022 8:31 AM EDT Temperature - - Respiratory Rate 16 01/18/2022 9:36 AM EDT Oxygen Saturation - - Inhaled Oxygen Concentration - - Weight 88.9 kg (196 lb) 03/02/2022 8:31 AM EDT Height 157.5 cm (5' 2 ) 03/02/2022 8:31 AM EDT Body Mass Index 35.85 03/02/2022 8:31 AM EDT Plan of Treatment Health Maintenance Due Date Last Done Comments Hepatitis B Vaccines (1 of 3 - 3-dose series) 1970 Hepatitis C Screening 1970 Depression Screening 1982 Preventative Health Evaluation 1988 Cervical Cancer Screening (Pap Smear) 1991 Colon Cancer Screening (Colonoscopy) 2015 Breast Cancer Screening (Mammogram) 2020 Shingrix-Zoster Vaccine (1 of 2) 2020 DTap / Tdap / Td (2 - Td or Tdap) 10/03/2022 10/03/2012 BMI Counseling 03/02/2023 03/02/2022, 01/18/2022 COVID-19 Vaccine (2 - 2024- season) 2025 07/27/2021 Influenza Vaccine (#1) 2025 2, 05/03/2020, 05/03/2020, Additional history exists Pneumococcal Vaccine Aged Out No long er eligible based on patient's age to complete this topic RSV Ped < 20 months Aged Out No longe r eligible based on patient's age to complete this topic Care Teams Stamp Presser Relationship Specialty Start Date End Date Killian Melendez MD [address] [place] [address] PCP - General Internal Medicine 01/23/22
== END 2025-02-26 12:49 | disposition home or self-care (01) ==
LOC: HO.US 12:48
PROVIDERS: PCP Pediatrics; Visit Provider Nurse Practitioner Family
DX: N20.0 Calculus of kidney (principal); N28.1 Cyst of kidney, acquired; R31.29 Other microscopic hematuria
CPT/HCPCS: 76775

== ENCOUNTER → 2025-02-26 12:50 | Outpatient (BNV) | payer OTHER, SELFPAY | PROVIDERS: PCP Pediatrics; Visit Provider Radiology Diagnostic Radiology | DX: N20.0 Calculus of kidney (principal) | CPT/HCPCS: 76775 ==

== ENCOUNTER 2025-03-03 07:52 | Outpatient (AMB) | payer OTHER, SELFPAY ==
--- OUTSIDE RECORDS SUMMARY | 2024-09-02 09:40 | XMS_ITS ---
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 Encounter Location Date Provider Diagnosis [facility] [employer] [address] [address] 09/02/2024 Leela Hernandez Plan Of Treatment Next Appt Details Provider Name:Leela pavon, 03/12/2025 02:30:00 PM, [facility], [address], [place], [address], Provider Name:Leela pavon, 12/31/2025 01:00:00 PM, [facility], [address], [place], [address], Progress Notes * ARTIE STALEYDOB: [birth year] (54 yo F)Acc No.[id number]:09/02/2024 Progress Note Patient: ARTIE BACK Appointment Provider: Cory Hernandez M.D. :1970 A ge:54 Y S ex:Female Date:09/02/2024 Address:[address] [place], [place] [id number] Pcp:SAULO FREY MD Subjective: * Chief Complaints: * 1 . 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 * Medical History: Objective: * Vitals: Assessment: Plan: * Treatment: * Images: Billing Information: * Visit Code: * Procedure Codes: * Electronic signature of Jose Manuel Hernandez MD on 03/03/2025 at 07:56 AM EDT Sign off status: Pending * Appointment Provider: Cory Hernandez M.D. Date: 0 09/02/2024 Generated for Jeronimo louie/Zina/Vlad on: 0 03/03/2025 07:56 AM EDT
--- OUTSIDE RECORDS SUMMARY | 2025-01-05 04:30 | XMS_ITS ---
Author Organization [facility] Address [address] [place] [phone] Care Team Providers Care Spreader Name Role Phone TK MCKEON, SAULO Primary Care Provider Unavail Leela Dela Cruz Unavailable [phone] REASON FOR VISIT ULTRA- TAW Encounters Encounter Location Date Provider Diagnosis [facility] [address] [address] 01/05/2025 Leela Hernandez Plan Of Treatment Next Appt Details Provider Name:Leela pavon, 03/12/2025 02:30:00 PM, [address] [place] [address], [address], [address], Provider Name:Leela pavon, 12/31/2025 01:00:00 PM, [facility], [address], [place], [address], Progress Notes * ARTIE STALEYDOB: 1 (54 yo F)Acc No.[id number]:01/05/2025 PROGRESS NOTES Patient: ARTIE BACK Appointment Provider: Cory Hernandez M.D. :1970 A ge:54 Y S ex:Female Date:01/05/2025 Address:[address] [place], [place] [id number] Pcp:SAULO FREY MD Subjective: * Chief Complaints: * 1 . ULTRA- TAW. * Medical History: Objective: * Vitals: Assessment: Plan: * Treatment: * Images: Billing Information: * Visit Code: * Procedure Codes: * Electronic signature of Jose Manuel Hernandez MD on 03/03/2025 at 07:58 AM EDT Sign off status: Pending * Appointment Provider: Cory Hernandez M.D. Date: 01/05/2025 Generated for Jeronimo louie/Zina/Vlad on: 0 03/03/2025 07:58 AM EDT
--- NOTE | 2025-03-03 07:49 | A.OFFVIS_ITS ---
Intake Visit Reasons: 1y/US Intake Note: Patient presents today for follow up on: Nephrolithiasis and Ultrasound Results Imaging Completed: 02/26/25 Urology Medications: none Blood Thinner: None Senior Gl Accountant Required: No Accompanied by: Self / Same As Patient Allergies metronidazole Allergy (Unknown, Verified 03/03/25 09:15) rash Medication List - Last Reconciled 03/03/25 by LOLY Pandey meloxicam 7.5 mg PO DAILY pantoprazole 40 mg PO BID venlafaxine ER 150 mg PO DAILY HPI Comments Details: Jena is a very pleasant 54-year-old female patient of Dr. Melendez. She presents to the office today for follow-up of her nephrolithiasis and renal cyst. In discussion with the patient today she reports to be doing and feeling well. She denies having had any bothersome urinary issues or concerns since her last office visit here. When asked patient reports to be drinking plenty of water daily. She denies any urinary issues or concerns at this time. When asked she reports to be happy with current voiding parameters. She denies urinary urgency, urinary frequency, incontinence, nocturia, hematuria, dysuria, foul smelling urine, changes to urinary stream, flank pain, fever, and or chills. In office urinalysis results reviewed with the patient today. Discussed at length potential causes for microscopic hematuria. Patient denies any previous chemical exposure or smoking history. Discussed further microscopic hematuria w orkup versus surveillance monitoring risks and benefits of these interventions were discussed. She discusses her upcoming appointment in March with her primary care to discuss options for weight management. Recent renal imaging results reviewed with the patient today 03/04 bilateral kidneys with normal parenchymal echotexture and thickness. There are no renal masses, hydronephrosis, or nephrolithiasis noted bilaterally per radiology report. She otherwise offers no other issues or concerns at this time. 03/02 & 03/03 urine cytology: Negative for high-grade urothelial carcinoma [facility] Medical History Renal cyst Review of Systems Const All systems reviewed & are unremarkable except as noted in HPI and below Eyes Reports no additional complaints ENT Reports no additional complaints Card Reports no additional complaints Resp Reports no additional complaints GI Reports no additional complaints Reports as per HPI Musc Reports no additional complaints Neuro Reports no additional complaints Psych Reports no additional complaints Endo Reports no additional complaints Jackson/Lymph Reports no additional complaints Aller/Immun Reports no additional complaints Physical Exam Const General: cooperative, healthy appearing, comfortable, no acute distress, well developed, alert and awake Nutritional Appearance: overweight Orientation/consciousness: patient oriented x3 Limitations: no limitations HEENT Head: Yes normal to inspection, Yes normocephalic and Yes atraumatic Ears: hearing grossly normal bilaterally Eyes General: appearance normal, both eyes and all related structures Neck Neck: Yes normal visual inspection and Yes trachea midline Chest Chest palpation & inspection: normal inspection of the chest Resp Effort & Inspection: normal respiratory effort and able to speak in complete sentences Cardio Rate: regular rate GI Inspection: Yes normal to inspection General: Yes no CVA tenderness Back/Spine/Pelvis Back: no CVA tenderness Skin General skin exam: no rashes or lesions noted Neuro General: patient oriented x3 Extrem General: Yes normal to inspection Psych Appearance: grossly normal and well kempt Mental Status: mental status grossly normal Speech and movement: Normal speech and movement present and Clear speech present Affect: normal affect Attitude: cooperative Thought process: Normal thought process present Thought content: Normal thought content present Insight: Fair insight present (Psych) Judgement: Fair judgement present (Psych) Results AMB Urinalysis, Automated UA Leukoctes 0 Akiko/uL Last Edit by LEVON Garza on 03/03/25 08:02 UA Nitrite Negative Last Edit by LEVON Garza on 03/03/25 08:02 UA Urobilinogen 3.5 mg/dL Last Edit by LEVON Garza on 03/03/25 08:0 2 UA Protein 15 mg/dL Last Edit by LEVON Garza on 03/03/25 08:02 UA pH 6.0 Last Edit by LEVON Garza on 03/03/25 08:02 UA Blood 80 Josh/uL Last Edit by LEVON Garza on 03/03/25 08:02 UA Specific [place] 1.020 Last Edit by LEVON Garza on 03/03/25 08: 02 UA Ketone Negative Last Edit by LEVON Garza on 03/03/25 08:02 UA Bilirubin 17 mg/dL Last Edit by LEVON Garza on 03/03/25 08:02 UA Glucose 0 mg/dL Last Edit by LEVON Garza on 03/03/25 08:02 Results Reviewed Results Reviewed: Laboratory Last Values Urine pH (Auto) 6.0 03/03/25 08:01 Specific [place] (Auto) 1.020 03/03/25 08:01 Urine Protein (Auto) 15 mg/dL 03/03/25 08:01 Glucose (UA)(Auto) 0 mg/dL 03/03/25 08:01 Urine Ketones (Auto) Negative 03/03/25 08:01 Urine Blood (Auto) 80 Josh/uL 03/03/25 08:01 Urine Nitrite (Auto) Negative 03/03/25 08:01 Urine Bilirubin (Auto) 17 mg/dL 03/03/25 08:01 Urine Urobilinogen (Auto) 3.5 mg/dL 03/03/25 08:01 Leukocyte Esterase (Auto) 0 Akiko/uL 03/03/25 08:01 Date of Service: 02/26/25 Procedure(s): US renal BI FINDINGS: Right kidney: The right kidney measures 10.9 x 4.9 x 4.6 cm. Renal parenchymal echotexture and thickness are normal. There is a cortical defect at the lower pole which may represent a scar. There are no masses. There is no hydronephrosis or renal calculi. Left Kidney: The left kidney measures 11.3 x 5.5 x 5.1 cm. Renal parenchymal echotexture and thickness are normal. There are no masses. There is no hydronephrosis or renal calculi. IMPRESSION: No evidence of nephrolithiasis. Assessment & Plan Assessment & Plan (1) Nephrolithiasis: Code(s): N20.0 - Calculus of kidney Category: Medical (2) Microscopic hematuria: Code(s): R31.29 - Other microscopic hematuria Category: Medical Plan In office urinalysis results reviewed with the patient today; as noted above; will send for urine cytology. Recent renal imaging results reviewed with the patient today; as noted above. She currently denies any bothersome urinary issues or concerns. She reports be happy with current voiding parameters. We did discussed potential causes of microscopic hematuria as well as further interventions and risks and benefits of these interventions. We discussed the importance of continuing with adequate hydration as well as adding 1 oz of lemon juice to water daily. All questions were answered. Will obtain renal ultrasound in 1 year. Follow-up in 1 year with imaging to be completed prior; or sooner with any issues, concerns, and or questions. Orders: Orders AMB Urinalysis Automated Today Z13.9 - Encounter for screening, unspecified Urine Cytology Today R31.29 - Other microscopic hematuria US renal BI 1 Year N20.0 - Calculus of kidney Patient Instructions: The patient had an opportunity to ask questions regarding the treatment plan. All questions were answered. Physical exam, labs, and imaging were discussed and reviewed in detail. As well as risks, benefits, and discussion of treatment choices. No major barriers to understanding were identified. The patient expressed understanding and agreement with the above treatment plan. The patient was made aware they should contact our office by phone for worsening of their current condition, the appearance of new symptoms, or with any questions or concerns. Compliance is encouraged with any medications and follow up testing that is ordered. It is a privilege to be allowed the opportunity to participate in? your urological care.? Again, if you have any questions or concerns If you have any questions or concerns please do not hesitate to contact me. The office is [phone]. This note is constructed using voice recognition software. While every effort has been made to ensure accuracy bartenders errors may have been included. Yours sincerely, PAM Pandey Coding Level of Care Code Est Pt Level 3 (48008) Complex EM visit Add On G2211 Diagnoses Nephrolithiasis N20.0 Microscopic hematuria R31.29
--- OUTSIDE RECORDS SUMMARY | 2025-03-03 07:56 | XMS_ITS | Encounter Summary ---
Author Organization [facility] Address [address] [place] [address] Phone Care Team Providers Care Header Boss Name Role Phone Killian Melendez MD Primary Care Provider Encounter Details Date Type Department Care Team (Late st Contact Info) Description 06/19/2023 Procedure Pass [facility] Endoscopy Department [address] [place] [id number] Social History Tobacco Use Types Packs/Day Years [...] 06/14/2025 3:40 PM EST Office Visit [facility] Endocrinology [address] [place] [phone] Rosaura Raymond MD [address] [place] [address] [email or web address] documented as of this encounter Visit Diagnoses Not on filedocumented in this encounter Care Teams Header Boss Relationship Specialty Start Date End Date Killian Melendez MD [address] [place] [id number] PCP - General Internal Medicine 08/29/18 documented as of this encounter Additional Source Comments The information contained in this document represents components of the legal health record. It is not the complete legal health record.[facility]
--- OUTSIDE RECORDS SUMMARY | 2025-03-03 07:56 | XMS_ITS | Patient Health Record ---
Author Organization [facility] Address [address] [place] [address] Care Team Providers Care Refinery Technician Name Role Phone Killian Melendez MD Primary Care Provider Unavail able Laxmi Talamantes Unavailable [phone] Allergies Allergen (clinical drug ingredient) Drug/Non Drug Allergy documented on EMR Reaction Allergy Type Onset Date Status metronidazole Metronidazole Unknown Drug Allergy Active omeprazole Omeprazole Chest pain Drug Allergy Acti ve ondansetron Ondansetron Itching Drug Allergy Act antonio vitamin B6 Vitamin B-6 Unknown Drug Allergy Acti ve dicyclomine Dicyclomine Tachycardia Drug Allergy A ctive Reason For Referral Diagnosis 1 Plantar fascial fibr omatosis (M72.2) Diagnosis 2 Pain in left foot (M 79.672) Diagnosis 3 Pain in right foot ( M79.671) Diagnosis 4 Other hammer toe(s) (acquired), right foot (M20.41) Diagnosis 5 Calcaneal spur, left foot (M77.32) Diagnosis 6 Pain in right toe(s) (M79.674) Diagnosis 7 Metatarsalgia of lef t foot (M77.42) Diagnosis 8 Bursitis of intermet atarsal bursa of right foot (M77.51) Diagnosis 9 Bursitis of intermet atarsal bursa of left foot (M77.52) Diagnosis 10 Pain in right ankle and joints of right foot (M25.571) Diagnosis 11 Pain in left ankle a nd joints of left foot (M25.572) Diagnosis 12 Other myositis, left ankle and foot (M60.872) Diagnosis 13 Metatarsalgia, right foot (M77.41) Referring Provider First Name Killian Referring Provider Last Name Nora Referred Organization [facility] Samy Referred Provider Laxmi Talamantes Referred Address [address] [facility] [place] Referred Provider Specialty Podiatry Referral Priority Routine Medications Medication SIG (Take, Route, Frequency, Duration) Notes Start Date End Date Status Amoxicillin Active Nitrofurantoin Monohyd Macro Active AZO Cranberry Active Venlafaxine HCl 75 MG 1 tablet with food Orally Once a day; Duration: 30 day(s) Active Pantoprazole Sodium 40 MG 1 tablet Orall y Once a day; Duration: 30 day(s) Active Vitamin E 400 UNIT 1 capsule Orally Onc e a day; Duration: 30 day(s) Not-Taking Gaviscon Not-Taking Work Note-Appointment . . . Pt had a [facility] appointment today; Duration: . 03/27/2024 Active Physical Therapy . . . 2-3x/week; Duration: 3-4 weeks 01/12/2021 Not-Taking Immunizations Vaccine Route Administration Date Status Comme nts COVID-19 Moderna Vaccine Unknown 09/09/2020 Administere d COVID-19 Moderna Vaccine Unknown 10/07/2020 Administere d Social History Tobacco Use: Social History Observation Description Date Details (start date - stop date) Never Smoker NA - NA Tobacco Use/Smoking Question Answer Notes Are you a: nonsmoker Additional Findings: Tobacco Non-User Current no n-smoker Alcohol Screen Question Answer Notes Did you have a drink contain ing alcohol in the past year? Yes How often did you have a dri nk containing alcohol in the past year? Monthly or less (1 point) Points 1 Interpretation Negative Tobacco use other than smoking: Question Answer Notes Are you an other tobacco user? No Vital Signs Height 5ft 1in in 03/27/2024 Weight 211 lbs 03/27/2024 BMI 39.86 kg/m2 03/27/2024 Encounters Encounter Location Date Provider Diagnosis [facility] [place] [address] [place] [phone] 03/27/2024 Laxmi Talamantes Pain in left foot M79.672 ; Pain in left ankle and joints of left foot M25.572 ; Bursitis of intermetatarsal bursa of left foot M77.52 ; Metatarsalgia of left foot M77.42 ; Pain in right foot M79.671 ; Pain in right ankle and joints of right foot M25.571 ; Bursitis of intermetatarsal bursa of right foot M77.51 and Metatarsalgia, right foot M77.41 Assessments Encounter Date Diagnosis (ICD Code) Assessment Notes Treatment Notes Treatment Clinical Notes Section Notes 03/27/2024 Pain in left ankle and joints of left foot (ICD-10 - M25.572) 03/27/2024 Pain in left foot (ICD-10 - M79.672) 03/27/2024 Bursitis of intermetatarsal bursa of left foot (ICD-10 - M77.52) 03/27/2024 Metatarsalgia of left foot (ICD-10 - M77.42) 03/27/2024 Pain in right foot (ICD-10 - M79.671) 03/27/2024 Pain in right ankle and joints of right foot (ICD-10 - M25.571) 03/27/2024 Bursitis of intermetatarsal bursa of right foot (ICD-10 - M77.51) 03/27/2024 Metatarsalgia, right foot (ICD-10 - M77.41) Plan Of Treatment Pending Test Test Name Order Date X ray : Foot, left 3V 03/27/2024 X ray : Foot, right 3V 03/27/2024 [id number] TENDON SHEATH/LIGAMENT 0 10/26/2020 [id number] TENDON SHEATH/LIGAMENT 0 11/23/2020 Insurance Providers Payer Name Payer Address Payer Phone Subscriber Number Group Number Insured Name Patient Relationship to Insured Coverage Start Date Coverage End Date Blue Benefits [address] [address] [place] [address] [id number] Jena David Self - patient is the insured [facility] Health Plan [address] [place] [address] [phone] [id number] Jena David Self - patient is the insured Medical (General) History Medical History History ICD Code Anxiety Back,Hip,and Knee pain Depression Headaches/Migraines Measles Mumps Chicken pox Hiatal hernia Reflux ( GERD) thyroid nodule Arthritis covid-19 Surgical History Surgery Date(Month/Year) 01/27/92 tonsillectomy ablation
--- OUTSIDE RECORDS SUMMARY | 2025-03-03 07:56 | XMS_ITS | Encounter Summary ---
Author Organization [facility] Address [address] [place] [address] Phone Care Team Providers Care Administrative Office Manager Name Role Phone Killian Melendez MD Primary Care Provider Encounter Details Date Type Department Care Team (Late st Contact Info) Description 02/13/2019 Procedure Pass [facility] Endoscopy Department [address] [place] [address] Social History Tobacco Use Types Packs/Day Years [...] Office Visit [facility] Endocrinology [address] [place] [address] Rosaura Raymond MD [address] [place] [address] [email or web address] documented as of this encounter Visit Diagnoses Not on filedocumented in this encounter Care Teams Administrative Office Manager Relationship Specialty Start Date End Date Killian Melendez MD [address] [place] [phone] PCP - General Internal Medicine 08/29/18 documented as of this encounter Additional Source Comments The information contained in this document represents components of the legal health record. It is not the complete legal health record.[facility]
--- OUTSIDE RECORDS SUMMARY | 2025-03-03 07:57 | XMS_ITS | Clinical Summary ---
Author Organization [facility] Address [address] [place] [address] Care Team Providers Care Burglar Alarm Mechanic Name Role Phone Unavailable Primary Care Provider [...]
--- OUTSIDE RECORDS SUMMARY | 2025-03-03 07:57 | XMS_ITS | Patient Health Record ---
Author Organization [facility] Address [address] [facility] [address] [place] [address] Care Team Providers Care Ticket Writer Name Role Phone Killian Melendez Primary Care Provider Unavailabl e Allergies Allergen (clinical drug ingredient) Drug/Non Drug Allergy documented on EMR Reaction Allergy Type Onset Date Status dicyclomine Dicyclomine HCl Unknown Drug Allergy Active dicyclomine Dicyclomine Unknown Drug Allergy Act antonio metronidazole Metronidazole Unknown Drug Allergy Active Reason For Referral No Information Medications Medication SIG (Take, Route, Frequency, Duration) Notes Start Date End Date Status Meloxicam 15 MG 1 tablet with food O rally Once a day; Duration: 90 days Active Gaviscon 95-358 MG/15ML 15 ml after meal s and at bedtime as needed Orally Four times a day Active MiraLax 17 GM 1 packet mixed with 8 ounces of fluid Orally Once a day Active Pantoprazole Sodium 40 MG 1 tablet Orally Once a day Active Venlafaxine HCl 75 MG 1 tablet with food Orally Once a day Active Gabapentin 300 MG 1 capsule Orally Onc e a day Active Problems Problem Type SNOMED Code ICD Code Onset Dates Problem Status W/U Status Risk Notes Problem Chronic pain (07870953) Other chronic pain (G89.29) Active confirmed Problem Osteoarthritis (071462870) 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 Plan Of Treatment Pending Test Test Name Order Date ADONAY w/Reflex if Positive 05/03/2021 WALKING BOOT PNEUMATIC AND/OR VAC 2021 Insurance Providers Payer Name Payer Address Payer Phone Subscriber Number Group Number Insured Name Patient Relationship to Insured Coverage Start Date Coverage End Date [facility] [address] [place] [address] [id number] Cal Davidmen Self - patient is the insured [facility] Health Plan [address] [place] [address] [phone] [id number] EdsonaleahJena Self - patient is the insured Medical (General) History Medical History History ICD Code Cellulitis of left upper limb Meniere's disease Non-toxic uninodular goiter Thyroid nodule Lumbar spondylosis Degeneration of lumbar intervertebral di sc Gastroesophageal reflux disease without esophagitis Loss of hair Low back pain Myofascial pain Major depressive disorder Migraine Vertigo Xerosis due to atopic dermatitis Sialoadenitis Patellofemoral stress syndrome Shoulder pain Edema of larynx Panic disorder without agoraphobia Disorder of vocal cord Sensorineural hearing loss Increased liver function Varicose veins of lower extremity Sleep apnea Epicondylitis Neck pain Hiatal hernia Kidney stones Surgical History Surgery Date(Month/Year) DXA bone density Caesarean section D&C Colonoscopy Endoscopic us exam esoph Esophagogastroduodenoscopy Esophageal motility study Thyroid surgery Hospitalization History Reason Date(Month/Year)
--- OUTSIDE RECORDS SUMMARY | 2025-03-03 07:57 | XMS_ITS | Clinical Summary ---
Author Organization Patient Business Ser [facility] Address [address] [place] [phone] Care Team Providers Care Flooring Grader Name Role Phone Killian Melendez MD Primary Care Provider [phone] Allergies Active Allergy Reactions Criticality Noted Date [...] (one) time each day. 07/05/2022 Active omega 1-oxj-cyp-fish oil (Fish OiL) 1,000 (120-180) mg capsule [...] patient's age to complete this topic Insurance [place] [employer] [facility] Care Teams Flooring Grader Relationship Specialty Start Date End Date Killian Melendez MD [address] PCP - General Internal Medicine 01/23/22
--- OUTSIDE RECORDS SUMMARY | 2025-03-03 07:57 | XMS_ITS | Patient Health Record ---
Author Organization [facility] Address [address] [place] [address] Care Team Providers Care Platinum And Palladium Kettle Tender Name Role Phone SAULO FREY MD Primary Care Provider Unavail able Leela Hernandez Unavailable [phone] Allergies Allergen (clinical drug ingredient) Drug/Non Drug Allergy documented on EMR Reaction Allergy Type Onset Date Status dicyclomine Dicyclomine HCl Tachycardia Drug Allergy Active omeprazole Omeprazole Chest Pain Drug Allergy Acti ve ondansetron Ondansetron Itching Drug Allergy Act antonio Results Component Value Reference Range Notes PDF Report Reviewed date:12/23/2024 07:57:31 AM Interpretation: Performing Lab:[facility] [address], [address], [place], Phone - [phone], Director - Karen Notes/Report: Clinical Information:Vagina;/Cervical, LMP: End ometrial Ablation 01/22/12 Source.............Cervix;Vagina LMP / Prev Treat...ZEY=[id number] Dates / Results....06/07/23 NIL Other..............Post Menopausal No. of containers..01 ThinPrep Vial PDF Report Reviewed date:12/20/2024 02:38:38 PM Interpretation: Performing Lab:[facility], [address] [facility], [place], Phone - [phone], Director - Arian Notes/Report: Clinical Information:SRC: URINE [id number] IGP, CtNg Culture 30 Plus Reviewed date:12/23/2024 07:59:45 AM Interpretation: Performing Lab:[facility] [address], [address], [place], Phone - [phone], Director - [facility] Notes/Report: Clinical Information:Vagina;/Cervical, LMP: End ometrial Ablation 01/22/12 Source.............Cervix;Vagina LMP / Prev Treat...GAG=[id number] Dates / Results....06/07/23 NIL Other..............Post Menopausal No. of containers..01 ThinPrep Vial DIAGNOSIS: NEGATIVE FOR IN TRAEPITHELIAL LESION OR MALIGNANCY. Specimen adequacy: Satisfact ory for evaluation. No endocervical component is identified. Clinician provided ICD10: Z01.419 Z11.51 Z72.51 Z11.3 Performed by: Jcarlos De Leon , Securities Adviser ([facility]) . . Note: The Pap smear is a screening test designed to aid in the detection of premalignant and malignant conditions of the uterine cervix. It is not a diagnostic procedure and should not be used as the sole means of detecting cervical cancer. Both false-positive and false-negative reports do occur. . Test Methodology: This liquid based ThinPrep(R) pap test was screened with the use of an image guided system. HPV Aptima Negative Negative This nucleic acid amplification test detects fourteen high-risk HPV types (16,18,31,33,35,39,45,51,52,5 6,58,59,66,68) without differentiation. HPV Genotype Reflex Criteria not met, HPV Genotype not performed. Chlamydia, Nuc. Acid Amp Negative Negative Gonococcus, Nuc. Acid Amp Negative Negative Urine Culture, Routine-[id number] Reviewed date:12/20/2024 02:38:46 PM Interpretation: Performing Lab:[facility] [place], [address] [facility], Phone - [phone], Director - Arian Notes/Report: Clinical Information:SRC: URINE Clinical Information:SRC: URINE Urine Culture, Routine Final report Result 1 No growth Urinalysis, Complete-[id number] Reviewed date:12/20/2024 02:40:13 PM Interpretation: Performing Lab:[facility] [place], [address] [facility], Phone - [phone], Director - Arian Notes/Report: Clinical Information:SRC: URINE Clinical Information:SRC: URINE Specific [place] 1.009 1.005-1.030 pH 6.5 5.0-7.5 Urine-Color Yellow Yellow Appearance Clear Clear WBC Esterase Negative Negative Protein Negative Negative/Trace Glucose Negative Negative Ketones Negative Negative Occult Blood Negative Negative Bilirubin Negative Negative Urobilinogen,Semi-Qn 0.2 0.2-1.0 mg/dL Nitrite, Urine Negative Negative Microscopic Examination Micr oscopic follows if indicated. Microscopic Examination See below: Micr oscopic was indicated and was performed. WBC None seen 0 - 5 /hpf RBC None seen 0 - 2 /hpf Epithelial Cells (non renal) None seen 0 - 10 /hpf Casts None seen None seen /lpf Bacteria None seen None seen/Few Urinalysis Reviewed date:12/18/2024 02:36:18 PM Interpretation: Performing Lab: Notes/Report: NITRITE Neg PH 5.0 PROTEIN Slight Trace S.G 1.000 WBC Trace GLUCOSE Neg KETONES Neg UROBILINOGEN Neg BILIRUBIN Neg BLOOD Trace Reason For Referral No Information Medications Medication SIG (Take, Route, Frequency, Duration) Notes Start Date End Date Status Estradiol Vaginal Cream 0.01% 1 Gram to the affected area Vaginal/Vulva Twice a week; Duration: 90 Days 12/18/2024 Active Womens Multivitamin Gummies Active Magnesium Complex High Potency 100mg 2x a day Active Meloxicam 15 MG Oral; Duration: 30 Days Active Pantoprazole Sodium 40 MG Oral; Duration: 90 Days Active Albuterol Sulfate HFA 108 (90 Base) MCG/ACT Inhalation; Duration: 50 Days Active Social History Tobacco Use: Social History Observation Description Date Details (start date - stop date) Never Smoker NA - NA Sexual History Question Answer Notes Had sex in the past 12 months (vaginal, oral, or anal)? No Have you ever had a Sexually transmitted disease ? Yes AUDIT-C (Standard) Question Answer Notes Did you have a drink containing alcohol in the p ast year? No Points 0 Interpretation Negative Tobacco Control (Standard) Question Answer Notes Tobacco use: Nonsmoker Problems Problem Type SNOMED Code ICD Code Onset Dates Problem Status W/U Status Risk Notes Problem Postmenopausal atrophic vaginitis (13501994) Postmenopausal atrophic vaginitis (N95.2) Active confirmed Problem Morbid obesity (disorder) (971425047) Morbid (severe) obesity due to excess calories (E66.01) Active confirmed Problem Hearing loss (60332244) Unspecified hearing loss, left ear (H91.92) Active confirmed Problem Atrophy of vulva (438687153) Atrophy of vulva (N90.5) Active confirmed Problem Paresthesia (finding) (65240070) Paresthesia of skin (R20.2) Active confirmed Vital Signs Temperature 97.5 degrees Fahrenheit 12/18/2024 Blood pressure diastolic 74 mm Hg 12/18/2024 Height 63 in 12/18/2024 Blood pressure systolic 116 mm Hg 12/18/2024 Weight 221 lbs 12/18/2024 BMI 39.14 kg/m2 12/18/2024 Encounters Encounter Location Date Provider Diagnosis [place] [address] [address] 01/05/2025 Leela Hernandez [address] [address] 12/18/2024 Leela Hernandez Encounter for gynecological examination (general) (routine) without abnormal findings Z01.419 ; Encounter for screening for human papillomavirus (HPV) Z11.51 ; Encounter for screening mammogram for malignant neoplasm of breast Z12.31 ; Dysuria R30.0 ; Postmenopausal atrophic vaginitis N95.2 and Atrophy of vulva N90.5 [address] [address] 12/21/2024 Leela Hernandez [address] [address] 01/15/2025 Leela Hernandez Assessments Encounter Date Diagnosis (ICD Code) Assessment Notes Treatment Notes Treatment Clinical Notes Section Notes 12/18/2024 Encounter for gynecological examination (general) (routine) without abnormal findings (ICD-10 - Z01.419) PAP TEST WAS OBTAINED. 12/18/2024 Encounter for screening for human papillomavirus (HPV) (ICD-10 - Z11.51) HPV TYPING WAS ORDERED WITH PAP SMEAR. 12/18/2024 Encounter for screening mammogram for malignant neoplasm of breast (ICD-10 - Z12.31) REGULAR MAMMOGRAMS AND SBE'S WERE RECOMMENDED. 12/18/2024 Dysuria (ICD-10 - R30.0) OFFICIAL UA AND URINE C/S. WILL CALL PAT IF ABNORMAL. SUSPECT BURNING IS NOT DUE TO UTI BUT SEVERE VULVAR AND VAGINAL ATROPHY. 12/18/2024 Postmenopausal atrophic vaginitis (ICD-10 - N95.2) DISCUSSED FINDINGS, DX AND TX OPTIONS. DISCUSSED INTRAVAGINAL ESTROGEN, ITS BENEFITS AND RISKS. RX AND DETAILED INSTRUCTIONS WERE GIVEN. 12/18/2024 Atrophy of vulva (ICD-10 - N90.5) DISCUSSED VULVAR ATROPHY AND INSTRUCTED PAT TO APPLY ESTRADIOL CREAM ALONG VULVA TWICE WEEKLY ALSO. Plan Of Treatment Pending Test Test Name Order Date MM Digital Mammo Screening 12/18/2024 Next Appt Details Provider Name:Leela pavon, 03/12/2025 02:30:00 PM, [address], [address], [place], [address], Provider Name:Leela pavon, 12/31/2025 01:00:00 PM, [address], [address], [place], [address], Insurance Providers Payer Name Payer Address Payer Phone Subscriber Number Group Number Insured Name Patient Relationship to Insured Coverage Start Date Coverage End Date [employer]EF[employer] [facility] [address] [address] [place] [address] [id number] ARTIE STALEY Self - patient is the insured [facility] HE[employer] PLAN [address] [place], [place] [phone] [id number] ARTIE STALEY Self - patient is the insured Medical (General) History Medical History History ICD Code Paresthesia of skin R20.2 Paresthesia of face and arm Morbid (severe) obesity due to excess ca lories E66.01 Unspecified hearing loss, left ear H91.9 2 Cyst of kidney, acquired N28.1 Surgical History Surgery Date(Month/Year) Tonsillectomy 11/20/23 Colonoscopy Endometrial Ablation 01/22/12 Bilateral Tubal Ligation 1992 Endoscopy 10/2018 Hospitalization History Reason Date(Month/Year) See Surgical Hx 1 Delivery 1 Vaginal Delivery
--- OUTSIDE RECORDS SUMMARY | 2025-03-03 07:58 | XMS_ITS | Clinical Summary ---
Author Organization [facility] Address [address] [place] [address] Care Team Providers Care Alligator Shear Operator Name Role Phone Killian Melendez MD Primary [...] age to complete this topic Care Teams Alligator Shear Operator Relationship Specialty Start Date End Date Killian Melendez MD [address] [place] [address] PCP - General Internal Medicine 01/23/22
--- OUTSIDE RECORDS SUMMARY | 2025-03-03 07:58 | XMS_ITS | Clinical Summary ---
Author Organization [facility] Address [address] [place] [phone] Phone Care Team Providers Care Cable Engineer Name Role Phone Killian Melendez MD Primary [...] Department Care Team Description 01/05/2025 Orders Only [facility] Endocrinology [address] [place] [address] Rosaura Raymond MD Thyroid nodule (Primary Dx) 01/05/2025 Telephone [facility] [address] [place] [address] Rosaura Raymond MD Ultra Sound Order from [...] Office Visit [facility] Endocrinology [address] [place] [address] Rosaura Raymond MD [address] [place] [phone] [email or web address] Health Maintenance Due Date Last Done Comments [...] Thyroid nodule from Last [address] [place] [address] HEALTH PLAN [facility] [employer] BENEFITS [employer]MIN[employer]ATORS [facility] FAMILY HE[employer] PLAN [employer] [facility] [employer] BENEFITS ADMIN[employer]RATORS [place] [address] [place] [address] [place] [address] FAMILY HEALTH PLAN [facility] ADMINISTRATORS [facility] HEALTH PLAN [facility] FAMILY HEALTH PLAN [facility] [employer] BENEFITS ADMINISTRATORS [facility] FAMILY HEALTH PLAN [facility] [employer] BENEFITS [employer]MIN[employer]RATORS [facility] FAMILY HEALTH PLAN [facility] BENEFITS ADMINISTRATORS Care Teams Cable Engineer Relationship Specialty Start Date End Date Killian Melendez MD [address] [place] [phone] PCP - General Internal Medicine 08/29/18 Additional Source Comments The information contained in this document represents components of the legal health record. It is not the complete legal health record.[facility]
--- OUTSIDE RECORDS SUMMARY | 2025-03-03 07:58 | XMS_ITS | Encounter Summary ---
Author Organization [facility] Address [address] [place] [address] Care Team Providers Care Digital Media Manager Name Role Phone Unavailable Primary Care Provider Unavailabl e Encounter Details Date Type Department Care Team (Late st Contact Info) Description 07/23/2022 Erroneous Encounter [facility] CONVERSION DEPT [address] [place] [address] Provider, MD Marina Social History [...]
== END 2025-03-03 08:32 | disposition home or self-care (01) ==
LOC: HO.HUSH 07:53
PROVIDERS: PCP Pediatrics; Visit Provider Nurse Practitioner Family
DX: N20.0 Calculus of kidney (principal); R31.29 Other microscopic hematuria; Z13.9 Encounter for screening, unspecified
CPT/HCPCS: 99213

== ENCOUNTER 2025-03-03 07:52 | Outpatient (REF) | payer OTHER, SELFPAY | END 2025-03-03 07:53 | disposition home or self-care (01) | LOC: HO.LAB 07:52 | PROVIDERS: PCP Pediatrics; Visit Provider Nurse Practitioner Family | DX: N20.0 Calculus of kidney (principal); R31.29 Other microscopic hematuria; Z13.89 Encounter for screening for other disorder | CPT/HCPCS: 81003; 88112 ==